=== PATIENT | female | born 1945 | race Caucasian/White ===

== ENCOUNTER 2020-07-05 11:48 | Emergency (ER) | payer MEDICARE ==
[~2020-07-05] VITALS: Ht 162.6 cm; Wt 131.5 kg
== END 2020-07-05 14:19 | disposition home or self-care (01) ==
LOC: ER 11:48
DX: S41.112A Laceration without foreign body of left upper arm, initial encounter (principal); S41.111A Laceration without foreign body of right upper arm, initial encounter; S80.02XA Contusion of left knee, initial encounter; K46.9 Unspecified abdominal hernia without obstruction or gangrene; I48.91 Unspecified atrial fibrillation; E11.9 Type 2 diabetes mellitus without complications; I10 Essential (primary) hypertension; Z87.891 Personal history of nicotine dependence; Z88.5 Allergy status to narcotic agent; V49.50XA Passenger injured in collision with unspecified motor vehicles in traffic accident, initial encounter; Y92.410 Unspecified street and highway as the place of occurrence of the external cause
CPT/HCPCS: 73562-LT; 99284-25

== ENCOUNTER 2021-01-20 13:58 | Observation (INO) | payer MEDICARE ==
[~2021-01-20] VITALS: Ht 160 cm; Wt 132.3 kg
[2021-01-20] MEDS ORDERED: NEURONTIN300 MG (14:13)
[2021-01-20] MEDS ORDERED: Pravastatin Sod80 MG PO (14:13)
[2021-01-20] MEDS ORDERED: AMLO5 PO (14:13)
[2021-01-20] MEDS ORDERED: Acetaminophen650 M1 (14:13)
[2021-01-20] MEDS ORDERED: KLOR-CON 1010 ME4 (14:14)
[2021-01-20] MEDS ORDERED: ZOLOFT100 M7 (14:14)
[2021-01-20] MEDS ORDERED: FUROSEMIDE20 MG PO (14:14)
[2021-01-20] MEDS ORDERED: LISI20 (14:18)
[2021-01-20] MEDS ORDERED: Tambocor100 MG PO (14:19)
[2021-01-20 14:20] LABS: BASOPHILS ABSOLUTE AUTO 0.05 K/mm3 (0.00-0.23); BASOPHILS PERCENT AUTO 1 % (0-2); EOSINOPHILS ABSOLUTE AUTO 0.22 K/mm3 (0.00-0.68); EOSINOPHILS PERCENT AUTO 3 % (0-6); Hematocrit 42.9 % (33.0-51.0); IMMATURE GRAN ABSOLUTE AUTO 0.02 K/mm3 (0.00-0.10); IMMATURE GRAN PERCENT AUTO 0 % (0-1); LYMPHOCYTES ABSOLUTE AUTO 1.54 K/mm3 (0.84-5.20); LYMPHOCYTES PERCENT AUTO 20 % (21-46); MONOCYTES ABSOLUTE AUTO 0.62 K/mm3 (0.16-1.47); MONOCYTES PERCENT AUTO 8 % (4-13); Mean Corpuscular HGB 31.2 pg (26.0-34.0); Mean Corpuscular HGB Conc 32.6 g/dL (31.5-36.5); Mean Corpuscular Volume 96 fL (80-100); Mean Platelet Volume 11.9 fL (9.1-12.4); NEUTROPHILS ABSOLUTE AUTO 5.33 K/mm3 (1.96-9.15); NEUTROPHILS PERCENT AUTO 69 % (41-73); Platelet Count 163 K/mm3 (150-400); RDW Coefficient Variation 12.9 % (11.7-14.2); RDW Standard Deviation 45.7 fL (35.1-46.3); Red Blood Cell Count 4.49 M/mm3 (3.80-5.20); White Blood Cell Count 7.78 K/mm3 (4.00-11.30)
[2021-01-20 14:43] LABS: Alanine Aminotransfer (ALT/SGP 19 U/L (12-78); Albumin, Blood 3.3 g/dL (3.4-5.0); Albumin/Globulin Ratio 0.9 (0.8-1.8); Alk Phos 80 U/L (50-136); Anion Gap 7 mmol/L (6-16); Aspartate Aminotrans (AST/SGOT 24 U/L (12-37); Bilirubin, Total 0.5 mg/dL (0.1-1.0); Blood Urea Nitrogen 10 mg/dL (8-24); Bun/Creatinine Ratio 12.2 (12.0-20.0); CO2, Blood 29 mmol/L (21-32); Calcium, Blood 8.8 mg/dL (8.5-10.1); Chloride, Blood 104 mmol/L (98-108); Creatinine, Blood 0.82 mg/dL (0.40-1.00); Globulin, Blood 3.8 g/dL (2.2-4.0); Glomerular Filtration Rate >60 (60-); Glucose, Blood 133 mg/dL (70-99); Potassium, Blood 4.4 mmol/L (3.5-5.5); Sodium, Blood 140 mmol/L (136-145); Total Protein, Blood 7.1 g/dL (6.4-8.2); Troponin I <0.015 ng/mL (0.000-0.040)
[2021-01-20] MEDS ORDERED: Vitamin B-121000 MCG PO (16:54)
[2021-01-20] MEDS ORDERED: VICTOZA 2-0.6 MG/0.1 SC (16:54)
[2021-01-20] MEDS ORDERED: NEURONTIN300 MG PO (16:55)
[2021-01-20] MEDS ORDERED: KLOR-CON 1010 ME4 PO (16:56)
[2021-01-20] MEDS ORDERED: ZOLOFT100 M7 PO (16:56)
[2021-01-20] MEDS ORDERED: ZESTRIL40 M1 PO (16:56)
[2021-01-20] MEDS ORDERED: BASAGLAR K100 UNIT/8 SC (16:56)
[2021-01-20] MEDS ORDERED: JANTOVEN4 M2 PO (16:57)
[2021-01-20] MEDS ORDERED: WARF4 PO (17:01)
[2021-01-20] MEDS ORDERED: BASAGLAR K100 UNIT/1 SC (17:02)
[2021-01-20 19:16] LABS: SARS-Cov-2 (COVID-19) PCR, MMC NEGATIVE (NEGATIVE)
--- NOTE | 2021-01-20 19:27 | NUR ---
PT ADMITTED TO ROOM 364 AND SETTLED IN. REPORT GIVEN TO ONCOMING SHIFT.
[2021-01-20 19:36] LABS: International Normalized Ratio 2.54
[2021-01-20] MEDS ORDERED: ACET500 (20:20)
[2021-01-20 20:34] LABS: CHOL/HDL RATIO 4.2; Cholesterol 164 mg/dL (50-200); HDL Cholesterol 39 mg/dL (>39); LDL/HDL RATIO 1.9; Low Density Lipoprotein Chol 73 mg/dL (0-110); Triglycerides 262 mg/dL (30-160); Very Low Density Lipoprot Chol 52 mg/dL (6-32)
[2021-01-21 05:14] LABS: BASOPHILS ABSOLUTE AUTO 0.04 K/mm3 (0.00-0.23); BASOPHILS PERCENT AUTO 1 % (0-2); EOSINOPHILS ABSOLUTE AUTO 0.32 K/mm3 (0.00-0.68); EOSINOPHILS PERCENT AUTO 5 % (0-6); Hematocrit 44.2 % (33.0-51.0); IMMATURE GRAN ABSOLUTE AUTO 0.03 K/mm3 (0.00-0.10); IMMATURE GRAN PERCENT AUTO 0 % (0-1); LYMPHOCYTES PERCENT AUTO 25 % (21-46); MONOCYTES ABSOLUTE AUTO 0.58 K/mm3 (0.16-1.47); MONOCYTES PERCENT AUTO 8 % (4-13); Mean Corpuscular HGB 31.2 pg (26.0-34.0); Mean Corpuscular HGB Conc 31.7 g/dL (31.5-36.5); Mean Corpuscular Volume 98 fL (80-100); Mean Platelet Volume 11.9 fL (9.1-12.4); NEUTROPHILS ABSOLUTE AUTO 4.39 K/mm3 (1.96-9.15); NEUTROPHILS PERCENT AUTO 61 % (41-73); Platelet Count 143 K/mm3 (150-400); RDW Coefficient Variation 12.8 % (11.7-14.2); RDW Standard Deviation 46.3 fL (35.1-46.3); Red Blood Cell Count 4.49 M/mm3 (3.80-5.20); White Blood Cell Count 7.16 K/mm3 (4.00-11.30)
[2021-01-21 05:27] LABS: International Normalized Ratio 2.35; Prothrombin Time Results 24.2 Sec (9.7-11.5)
--- NOTE | 2021-01-21 05:52 | NUR ---
SHIFT SUMMARRY PATIENT REMAINS ALERT ANT ORIENTED DURING SHIFT. CALM AND QUIET THROUGH THE NIGHT. NO ACUTE MEDICAL DISTRESS NOTED
[2021-01-21 05:53] LABS: Alanine Aminotransfer (ALT/SGP 17 U/L (12-78); Albumin, Blood 3.3 g/dL (3.4-5.0); Albumin/Globulin Ratio 0.9 (0.8-1.8); Alk Phos 70 U/L (50-136); Anion Gap 4 mmol/L (6-16); Aspartate Aminotrans (AST/SGOT 11 U/L (12-37); Bilirubin, Total 0.3 mg/dL (0.1-1.0); Blood Urea Nitrogen 11 mg/dL (8-24); Bun/Creatinine Ratio 12.5 (12.0-20.0); CO2, Blood 34 mmol/L (21-32); Calcium, Blood 9.2 mg/dL (8.5-10.1); Chloride, Blood 104 mmol/L (98-108); Creatinine, Blood 0.88 mg/dL (0.40-1.00); Globulin, Blood 3.5 g/dL (2.2-4.0); Glomerular Filtration Rate >60 (60-); Glucose, Blood 74 mg/dL (70-99); Potassium, Blood 3.8 mmol/L (3.5-5.5); Sodium, Blood 142 mmol/L (136-145); Total Protein, Blood 6.8 g/dL (6.4-8.2)
--- NOTE | 2021-01-21 18:47 | NUR ---
SHIFT SUMMARY PT INDEPENDENT TO BATHROOM. REPORTS VOIDING SEVERAL TIMES TODAY. NO CHEST PAIN REPORTED. 1ST PART OF STRESS TEST COMPLETED WITH 2ND PART PLANNED FOR TOMORROW MORNING.
[2021-01-22 05:03] LABS: Hematocrit 43.4 % (33.0-51.0); Mean Corpuscular HGB 31.5 pg (26.0-34.0); Mean Corpuscular HGB Conc 32.3 g/dL (31.5-36.5); Mean Corpuscular Volume 98 fL (80-100); Mean Platelet Volume 11.7 fL (9.1-12.4); Platelet Count 142 K/mm3 (150-400); RDW Coefficient Variation 12.7 % (11.7-14.2); RDW Standard Deviation 45.8 fL (35.1-46.3); Red Blood Cell Count 4.44 M/mm3 (3.80-5.20); White Blood Cell Count 7.21 K/mm3 (4.00-11.30)
--- NOTE | 2021-01-22 05:17 | NUR ---
SHIFT SUMMARRY PATIENT REMAINS QUIET IN HER BED MOST OF THE. MULTIPLE INDEPENDENT VOIDS TO THE BATHROOM. HEART RATE IN THE HIGH FORTIES WHILE ASLEEP WITH NO SS OF DISTRESS NOTED. HR THIS AM 51. NO ACUTE MEDICAL CHANGES THIS SHIFT.
[2021-01-22 05:34] LABS: Albumin, Blood 3.2 g/dL (3.4-5.0); Anion Gap 6 mmol/L (6-16); Blood Urea Nitrogen 17 mg/dL (8-24); CO2, Blood 29 mmol/L (21-32); Chloride, Blood 104 mmol/L (98-108); Glomerular Filtration Rate >60 (60-); Glucose, Blood 69 mg/dL (70-99); Phosphorus, Blood 4.3 mg/dL (2.5-4.9); Potassium, Blood 3.8 mmol/L (3.5-5.5); Sodium, Blood 139 mmol/L (136-145)
[2021-01-22] MEDS ORDERED: ASPI81CH PO (17:26)
[2021-01-22] MEDS ORDERED: METO25ER PO (17:29)
--- NOTE | 2021-01-22 18:43 | NUR ---
PATIENT IS ALERT AND ORIENTED X 4. DENIES PAIN. VS WNL. SHE DOES NOT APPEAR TO BE IN ACUTE DISTRESS. SHE HAS HAD AN UNEVENTFUL DAY. BLOOD GLUCOSE 68 THIS AM. SHE WAS NPO FOR STRESS TEST. D5 AT 100ML/HR WAS ADMINISTERED PER MD ORDER'S AND DISCONTINUED WHEN THE PATIENT WAS ABLE TO RESUME DIET. BLOOD GLUCOSE WAS 156 AFTER APPROX 2 HRS. SHE WAS DISCHARGED TO HOME. R FA HEPLOCK AND TELEMETRY WAS DISCONTINUED. PATIENT EDUCATION PROVIDED AT BEDSIDE. PATIENT DID NOT HAVE ANY F/U QUESTIONS. SHE WAS TRANSPORTED VIA WHEELCHAIR.
== END 2021-01-22 18:27 | disposition home or self-care (01) ==
LOC: ER 13:58 → MEDS 13:59 → ERHOLD 13:59 → MEDS 18:41
PROVIDERS: Emergency Medicine; Internal Medicine; Student in an Organized Health Care Education/Training Program; ADMIT Hospitalist
DX: I20.8 Other forms of angina pectoris (principal); I48.0 Paroxysmal atrial fibrillation; E78.5 Hyperlipidemia, unspecified; E66.01 Morbid (severe) obesity due to excess calories; J44.9 Chronic obstructive pulmonary disease, unspecified; E11.42 Type 2 diabetes mellitus with diabetic polyneuropathy; F32.9 Major depressive disorder, single episode, unspecified; M19.90 Unspecified osteoarthritis, unspecified site; I11.0 Hypertensive heart disease with heart failure; I50.9 Heart failure, unspecified; Z88.5 Allergy status to narcotic agent; Z88.1 Allergy status to other antibiotic agents; Z79.82 Long term (current) use of aspirin; Z79.4 Long term (current) use of insulin; Z79.01 Long term (current) use of anticoagulants; Z20.822 Contact with and (suspected) exposure to COVID-19; Z68.43 Body mass index [BMI] 50.0-59.9, adult; Z87.891 Personal history of nicotine dependence
CPT/HCPCS: 36415; 71045; 78452; 80053; 80061; 80069; 82947; 83036; 83880; 84443; 84484; 85025; 85027; 85610; 93005; 93010; 93017; 93306; 99285-25; A9270; A9500; J0706; J1815; J2785; J7070; U0004